=== PATIENT | female | born 1955 | race Caucasian/White ===

== ENCOUNTER 2020-07-09 05:03 | Day surgery (SDC) | payer MEDICARE ==
[2020-07-06 16:06] LABS: BASOPHILS 1.3 % (0-2); EOSINOPHILS 3.7 % (0-7); HEMOGLOBIN 15.6 g/dL (12-16); IMMATURE GRANULOCYTES 0.1 % (0-5); LYMPHOCYTE ABS# 1.29 10x3/uL (1.18-3.74); MCH 32.4 pg (26.0-34.0); MCHC 33.9 g/dL (31.0-37.0); MCV 95.4 fL (80.0-100.0); MEAN PLATELET VOLUME 10.1 fL (7.4-10.4); MONOCYTES 11.5 % (2-11); NEUTROPHIL ABS# 5.02 10x3/uL (1.56-6.13); NEUTROPHILS 66.4 % (40-80); PLATELET COUNT 276 10x3/uL (130-400); RBC 4.82 10x6/uL (4.00-5.40); WBC 7.6 10x3/uL (4.8-10.8)
[2020-07-06 16:13] LABS: APTT 29.5 SECONDS (22.8-39.4); INR 1.11 (0.85-1.17); PROTIME 13.3 SECONDS (11.6-15.0)
[2020-07-06 16:18] LABS: ALBUMIN 3.7 g/dL (3.4-5.0); ALKALINE PHOSPHATASE 99 U/L (30-120); ALT (SGPT) 23 U/L (10-68); BILIRUBIN - TOTAL 0.53 mg/dL (0.2-1.3); CALC OSMOLALITY 278 mosm/kg (275-300); CALCIUM 9.3 mg/dL (8.5-10.1); CARBON DIOXIDE 24.4 mmol/L (21.0-32.0); CHLORIDE - SERUM 103 mmol/L (98-107); CREATININE - SERUM 0.8 mg/dL (0.6-1.3); GLUCOSE 91 mg/dL (74-106); POTASSIUM - SERUM 3.7 mmol/L (3.5-5.1); PROTEIN - SERUM 7.7 g/dL (6.4-8.2); SODIUM 139 mmol/L (136-145); UREA NITROGEN 16 mg/dL (7-18); eGFR NON AFRICAN AMERICAN 76 mL/min (90-120)
[~2020-07-09] VITALS: Ht 157.5 cm; Wt 68.0 kg
[~2020-07-09 05:03] MED LIST: ALDACTONE25 MG PO; ATIVAN1 MG PO; COZAAR50 MG PO; CYMBALTA30 MG PO; GABAPENTIN300 MG PO; HYDROCHLOROTH12.5 M1 PO; VENTOLIN HFA [SP8 GM INH; WELLBUTRIN XL150 M1 PO
--- NOTE | 2020-07-09 06:22 | NUR ---
REFUSES CONSULT. [facility] THAT WAS 10 YEARS AGO AND DOES NOT HAVE THOSE THOUGHT NOW. [facility] HAS PLENTY OF RESOURCES AVAILABLE TO HER
[2020-07-09 06:25] VITALS: BP 192/81; Ht 157.5 cm; Wt 68.0 kg
[2020-07-09] MEDS ORDERED: HYDROCODON-ACE1 EA10 PO (09:14)
[2020-07-09] MEDS ORDERED: MEDROL DOSE PACK4 MG PO (09:15)
--- NOTE | 2020-07-09 15:13 | NUR ---
DR. MALCOLM NOTIFIED OF ELEVATED BLOOD PRESSURE. NEW ORDERS RECEIVED. HYDRALAZINE ADMININSTERED AND BLOOD PRESSURE RESPONDED TO INTERVENTION.
--- NOTE | 2020-07-09 15:16 | NUR ---
1218 PATIENT DISCHARGED VIA WHEELCHAIR TO PRIVATE CAR AFTER INSTRUCTIONS GIVEN TO BOTH PATIENT AND HER DAUGHTER.
--- NOTE | 2020-07-16 09:03 | OP ---
PATIENT NAME: MARGOT SANDERSON MEDICAL RECORD: [id number] :55 LOCATION:[facility] ADMISSION DATE: SURGEON: RACQUEL CURTIS MD DATE OF OPERATION: 07/09/2020 DATE OF SERVICE: 07/09/2020 PREOPERATIVE DIAGNOSES: Lumbar spinal stenosis and foraminal stenosis, left L3-L4 and L4-L5 and right L4-L5 and L3-L4. POSTOPERATIVE DIAGNOSES: Lumbar spinal stenosis and foraminal stenosis, left L3-L4 and L4-L5 and right L4-L5 and L3-L4. PROCEDURE: Lumbar laminectomy, medial facetectomy and foraminotomy on the left at L3-L4 and L4-L5 with right sublaminar decompression at L3-L4 and L4-L5 with METRx retractors. SURGEON: Racquel Curtis MD DESCRIPTION OF PROCEDURE: After induction of general endotracheal anesthesia, the patient was rolled prone on the [place] frame. The lumbar spine was prepped and draped in the usual sterile fashion. Fluoroscopic x-ray and spinal needle localized the L3-L4 interspace on the left side. A 1:100,000 epinephrine was infiltrated with a 25-gauge needle. A stab incision was created with #11 blade. Series of dilators were used to advance a METRx retractor to the L3-L4 interspace on the left side. Level was confirmed with fluoroscopic x-ray. A microscope and Midas Yobany drill was used to perform a laminectomy, medial facetectomy, and foraminotomy at L3-L4 and L4-L5 on the left. Hypertrophied ligamentum flavum was removed with Cloward rongeurs. Following this, the left L3 and L4 nerve roots were decompressed as well as L5 nerve root. The spinous processes at L3 and L4 were undermined using a Midas Yobany drill. Hypertrophied ligamentum flavum was removed within the central portions of the canal as well as the opposite right L3-L4 and L4-L5 neural foramina. Following this, the right L3, L4 and L5 nerve roots were decompressed as well. Meticulous hemostasis was maintained throughout the wound. The wound was irrigated with copious amounts of Ancef irrigant solution. The retractor was removed. The fascia was closed with 2-0 Vicryl suture. Subdermal layer was closed with 3-0 Vicryl suture. Skin was closed with papa. A sterile dressing was applied to the wound. The patient was awakened in good condition and taken to recovery. All counts were reported as correct. Estimated blood loss was minimal. TRANSINT:[id number] Voice Confirmation ID: [id number] DOCUMENT ID: [id number] RACQUEL CURTIS MD at 0903 CC: [id number] DICTATION DATE: 07/16/20 0457 ASL INTERPRETER: 07/16/20 0853 [facility] 07/09/20 [place] [id number]
== END 2020-07-09 12:18 | disposition home or self-care (01) ==
LOC: D.OPS 05:03
PROVIDERS: Anesthesiology; ATTEND Neurological Surgery
DX: M48.061 Spinal stenosis, lumbar region without neurogenic claudication (principal); M54.16 Radiculopathy, lumbar region; M54.5 Low back pain; I10 Essential (primary) hypertension; J44.9 Chronic obstructive pulmonary disease, unspecified; Z85.05 Personal history of malignant neoplasm of liver